=== PATIENT | female | born 1980 | race Caucasian/White ===

== ENCOUNTER 2019-02-17 21:42 | Emergency (ER) | payer MEDICAID ==
[~2019-02-17] VITALS: Ht 175.3 cm; Wt 86.2 kg
[2019-02-17 22:05] VITALS: BP_SYST 154
--- NOTE | 2019-02-17 22:10 | NUR ---
Patient to ER bed 06 to gown for evaluation. Side rails up.
--- NOTE | 2019-02-17 22:23 | NUR ---
ER Dr. Oshea at bedside examining patient.
[2019-02-17 22:41] VITALS: BP_SYST 147
--- NOTE | 2019-02-17 22:41 | NUR ---
Patient given written and verbal discharge instructions and verbalizes understanding. ER MD Oshea discussed with patient the results and treatment provided. Patient in stable condition. ID arm band removed. Rx of Macrobid given. Patient educated on pain management and to follow up with PMD. Pain Scale 1. Opportunity for questions provided and answered. Medication side effect fact sheet provided.
[2019-02-17 22:47] LABS: BILIRUBIN,URINE NEGATIVE (NEGATIVE); BLOOD, URINE 3+ (NEGATIVE); CLARITY/URINE HAZY (CLEAR); COLOR,URINE YELLOW (YELLOW); GLUCOSE,URINE TRACE (NEGATIVE); KETONES,URINE 1+ (NEGATIVE); LEUKOCYTE ESTERASE ,URINE 2+ (NEGATIVE); NITRITE, URINE POSITIVE (NEGATIVE); PH,URINE 5.5 (5.0-8.0); PROTEIN URINE 3+ (NEGATIVE)
[2019-02-17 23:13] LABS: RBC,URINE 50-80 /HPF (0-3)
[2019-02-17 23:14] LABS: BACTERIA,URINE MODERATE /HPF (None Seen); WBC,URINE 20-50 /HPF (0-3)
== END 2019-02-17 22:41 | disposition home or self-care (01) ==
LOC: SED 21:42
DX: N39.0 Urinary tract infection, site not specified (principal); Z88.2 Allergy status to sulfonamides
CPT/HCPCS: 81000-TC; 81025; 87086; 87186-TC; 99283